=== PATIENT | female | born 1995 | race Caucasian/White ===

== ENCOUNTER 2016-08-09 04:16 | Emergency (ER) | payer OTHER ==
--- NOTE | 2016-08-09 04:19 | PDOC ---
History of Present Illness - General Chief Complaint: Respiratory Stated Complaint: DRY COUGH X ONE WEEK Time Seen by Provider: 08/09/16 04:18 - History of Present Illness Initial Comments: This 21-year-old woman presents with a 3 day history of nonproductive cough; patient describes nasal congestion/runny nose consistent with her usual seasonal ALLERGY symptoms starting 10 days ago. 3 days ago she began to have nonproductive cough with subjective fever and intermittent chills. Over the last day, she has had throat discomfort/upper chest pain, especially with coughing. Although she has had bronchospasm in the past with upper respiratory infections, she has not had any wheezing now. She describes persistent nighttime nonproductive cough that keeps her awake. She has had no nausea/ vomiting/diarrhea. No known sick contacts although she visited her brother who has a 3-year-old son(who had runny nose) 5 days ago. No history of chronic sinusitis; patient has not had any purulent nasal discharge during the current illness. Patient states that she had chronic tonsillitis/bronchitis but had tonsillectomy 2 years ago. No history of asthma or other chronic respiratory illnesses No history of smoking; no history of alcohol or other recreational drug abuse Medications Afrin spray Oral contraceptives No known ALLERGIES Past History - Past Medical History Allergies/Adverse Reactions: Allergies Allergy/AdvReac Type Severity Reaction Status Date / Time No Known Allergies Allergy Verified 08/09/16 04:17 Home Medications: Ambulatory Orders Azithromycin 250 mg PO DAILY #4 tablet 08/09/16 Fluticasone Prop 0.05% Nasal [Flonase -] 1 - 2 spray NS BID #1 spray.pump Hydrocodone Bit/Homatrop Me-Br [Hydrocodone-Homatropine Syrup] 5 ml PO BID PRN # 30 ml MDD 10 ml 08/09/16 Review of Systems - Review of Systems Able to Perform ROS?: Yes Comments:: 12 point review of systems is negative except for what is noted in the history of present illness *Physical Exam - Physical Exam Comments: GENERAL: Adult female with frequent nonproductive cough, alert and oriented 3; no respiratory distress HEAD: Normal with no signs of trauma. EYES: PERRLA, EOMI, sclera anicteric, conjunctiva clear. ENT: Ears normal, nares patent, oropharynx mildly erythematous without exudates. Moist mucous membranes. NECK: Normal range of motion, supple without lymphadenopathy, JVD, or masses. LUNGS: Breath sounds equal, clear to auscultation bilaterally. No wheezes, and no crackles. HEART:Regular rate and rhythm, normal S1 and S2 without murmur, rub or gallop. ABDOMEN:.normal bowel sounds No guarding,tenderness or rebound.No masses No distention. EXTREMITIES: Normal range of motion, no edema. No clubbing or cyanosis. No erythema, or tenderness. NEUROLOGICAL: Cranial nerves II through XII grossly intact. Normal speech. No focal neurological deficits. MUSCULOSKELETAL: Back non-tender to palpation, no CVA tenderness SKIN: Warm, Dry, normal turgor, no rashes or lesions noted. Progress Note - Progress Note Progress Note: Clinical presentation most consistent with acute bronchitis. Although the patient had evidence of seasonal ALLERGIES early on in this current illness, she now has nonproductive cough with pain secondary to upper respiratory inflammation. There is no evidence of bronchospasm or other abnormal auscultatory findings on exam. Patient will be empirically treated with azithromycin (Z-Brandon). First dose given here in the emergency room prescription for following 4 day course. Patient has been cautioned to be careful using Afrin nasal spray. Prescription for Flonase will be sent in to her pharmacy used instead of Afrin for her nasal congestion. The patient states that she has been losing sleep secondary to the persistent nonproductive cough that she is experiencing at night. The patient will be given a very small (30 mL) prescription for Hycodan/homatropine syrup: 5 mL up to twice a day as needed for persisting cough Patient states that she will be moving from this area back to [place] in 4 days. She does have general doctor on [place]; she should follow-up with this doctor within the next week. Meanwhile, if her symptoms worsen prior to moving, she should return here to the emergency room. *DC/Admit/Observation/Transfer Diagnosis at time of Disposition: Acute bronchitis Qualifiers: Bronchitis organism: other organism Qualified Code(s): J20.8 - Acute bronchitis due to other specified organisms - Discharge Dispostion Disposition: HOME Condition at time of disposition: Stable - Prescriptions Prescriptions: Azithromycin 250 mg PO DAILY #4 tablet Fluticasone Prop 0.05% Nasal [Flonase -] 1 - 2 spray NS BID #1 spray.pump Hydrocodone Bit/Homatrop Me-Br [Hydrocodone-Homatropine Syrup] 5 ml PO BID PRN # 30 ml MDD 10 ml PRN Reason: Cough - Patient Instructions Printed Discharge Instructions: DI for Acute Bronchitis Additional Instructions: Rest; drink plenty of fluids Use a vaporizer in room at night No work this coming day Azithromycin 250 mg daily for the next 4 days Flonase 1 spray each nostril twice a day Hydrocodone/homatropine syrup: 1 teaspoon up to twice a day for severe cough Follow-up with your doctor when you return to [place] Return to ER if he had severe cough/high fever/shortness of breath - Post Discharge Activity Work/School Note: Back to Work
[2016-08-09 04:24] VITALS: BP 127/74; PULSE 79; TEMP 98.9; BMI 18.2
[2016-08-09] MEDS ORDERED: AZITHROMYCIN 250 MG TABLET (FP) PO ONE (04:40)
[2016-08-09] MEDS ORDERED: AZITHROMYCIN 250 MG TABLET (FP) ONE (04:41)
== END 2016-08-09 04:50 | disposition home or self-care (01) ==
LOC: FER 04:16
DX: J20.8 Acute bronchitis due to other specified organisms (principal)
CPT/HCPCS: 99281-25

== ENCOUNTER 2017-06-13 13:41 | Emergency (ER) | payer OTHER ==
[2017-06-13] MEDS ORDERED: IBUPROFEN 600 MG TABLET (FP) PO ONE (13:59)
[2017-06-13] MEDS ORDERED: guaiFENesin/CODEINE 10 ML UNIT-DOSE CUPS PO ONE (14:00)
[2017-06-13 14:01] VITALS: BP 112/65; PULSE 72; TEMP 98.4; BMI 19.8
--- NOTE | 2017-06-13 14:04 | PDOC ---
History of Present Illness - General Chief Complaint: Respiratory Stated Complaint: SORE THROAT RESPIRATORY PROBLEMS Time Seen by Provider: 06/13/17 13:53 - History of Present Illness Initial Comments: 06/13/17 14:40 Chief complaint: Sore throat and cough History of present illness: Symptoms since last night. [place] feverish but did not take her temperature. Review of systems: No chest pain or shortness of breath. Headache is present. Took 1 dose of ibuprofen this morning with partial relief. Remainder of systems reviewed and negative Past medical history: Healthy female, no active medical or surgical problems Social/family history reviewed and noncontributory Physical exam: Alert well-developed well-nourished no acute distress cooperative Afebrile, vital signs normal HEENT: Mild pharyngeal injection without exudate swelling or mass. Ears clear. Mild nasal congestion without discharge. Conjunctivae clear Neck supple without bruit mass or nodes Chest clear, no wheezes rales or rhonchi, breath sounds bilateral. CV regular without murmur rub or gallop Abdomen benign Skin clear, no rash, adequate turgor and wet mucous membranes Impression: Viral URI rule out strep Plan: Strep screen, further treatment of positive, otherwise rest and supportive care. Past History - Past Medical History Allergies/Adverse Reactions: Allergies Allergy/AdvReac Type Severity Reaction Status Date / Time No Known Allergies Allergy Verified 06/13/17 13:44 Home Medications: Ambulatory Orders Guaifenesin Dm [Robitussin Dm -] 10 ml PO Q8H PRN #90 ml 06/13/17 Ibuprofen 800 mg PO TID #20 tablet 06/13/17 COPD: No Other medical history: DENIES - Suicide/Smoking/Psychosocial Hx Smoking History: Never smoked Have you smoked in the past 12 months: No Information on smoking cessation initiated: No Hx Alcohol Use: Yes (SOCIAL) Drug/Substance Use Hx: No Substance Use Type: Alcohol *Physical Exam - Vital Signs Last Vital Signs Temp Pulse Resp BP Pulse Ox 98.4 F 72 16 112/65 96 06/13/17 13:42 06/13/17 13:42 06/13/17 13:42 06/13/17 13:42 06/13/17 13:42 Medical Decision Making - Medical Decision Making 06/13/17 14:42 Strep screen is negative. Continue ibuprofen and Robitussin. Rest and fluids. Follow-up if symptoms worsen ER or primary physician *DC/Admit/Observation/Transfer Diagnosis at time of Disposition: Viral upper respiratory tract infection with cough - Discharge Dispostion Disposition: HOME Condition at time of disposition: Stable Admit: No - Prescriptions Prescriptions: Guaifenesin Dm [Robitussin Dm -] 10 ml PO Q8H PRN #90 ml PRN Reason: Cough Ibuprofen 800 mg PO TID #20 tablet - Referrals - Patient Instructions Printed Discharge Instructions: DI for Viral Upper Respiratory Infection -- Adult - Post Discharge Activity Forms/Work/School Notes: Back to Work
[2017-06-13] MEDS ORDERED: guaiFENesin/CODEINE 10 ML UNIT-DOSE CUPS ONE (14:10)
[2017-06-13] MEDS ORDERED: IBUPROFEN 400 MG TABLET (FP) PO ONE (14:10)
== END 2017-06-13 14:46 | disposition home or self-care (01) ==
LOC: FER 13:41
DX: J06.9 Acute upper respiratory infection, unspecified (principal); B97.89 Other viral agents as the cause of diseases classified elsewhere; R05 Cough
CPT/HCPCS: 87070; 87430; 99282-25